=== PATIENT | male | born 1960 | race Caucasian/White ===

== ENCOUNTER 2017-07-06 09:59 | Day surgery (SDC) | payer OTHER ==
[~2017-07-06] VITALS: Ht 170.2 cm; Wt 81.5 kg
[2017-07-06] MEDS ORDERED: LOSARTAN (10:41)
[2017-07-06] MEDS ORDERED: OMEPRAZOLE (10:41)
[2017-07-06] MEDS ORDERED: FLOMAX (10:41)
[2017-07-06 10:42] VITALS: Ht 170.2 cm; Wt 81.5 kg
[2017-07-06 11:53] VITALS: BP 128/76; PULSE 63; RESP 14
--- NOTE | 2017-07-06 12:35 | OPPN ---
Date/Time of Note Date/Time of Note DATE: 07/06/17 TIME: 12:32 Operative Report Preoperative Diagnosis Screening colonoscopy Abdominal pain Postoperative Diagnosis Gastritis with erosions Internal hemorrhoids Operation/Procedure Performed Esophagogastroduodenoscopy and biopsy Colonoscopy Provider: JOANNE OROZCO MD Anesthesia Type: moderate sedation Estimated blood loss: none Transfusion Required: no Specimens Gastric mucosal biopsy Grafts/Implants: none Complications: no JOANNE OROZCO MD Jul 06, 2017 12:34
[2017-07-06 12:55] VITALS: BP 125/80; PULSE 50; RESP 14
[2017-07-06] MEDS ORDERED: FENTAnyl 50 MCG/ML VIAL ONE (12:57)
[2017-07-06] MEDS ORDERED: MIDAZOLAM 1 MG/ML 2 ML INJ ONE ×2 (12:57)
--- NOTE | 2017-07-06 13:28 | GILP ---
DATE OF PROCEDURE: 07/06/2017 PROCEDURE PERFORMED: 1. Esophagogastroduodenoscopy and biopsy. 2. Colonoscopy. SURGEON: Domingo Farmer MD. PREOPERATIVE DIAGNOSES: 1. Abdominal pain. 2. Screening colonoscopy. POSTOPERATIVE DIAGNOSES: 1. Gastritis with erosions. 2. Gastric mucosal biopsies were taken for Helicobacter pylori test. 3. Colonoscopy all the way to the cecum. 4. Internal hemorrhoids. 5. No colon neoplasm was identified. INDICATION: Mr. Cornell Noonan is a 56-year-old male patient who had upper abdominal pain not responding to therapy. He also noticed change in the bowel habits and he had positive occult blood in stool. He has never had a screening colonoscopy. The procedures and possible complications were well explained to the patient. He understood and consented to the procedure. DESCRIPTION OF PROCEDURE: Under influence of fentanyl and Versed, the gastroscope was carefully introduced into the esophagus, and under direct vision, it was advanced to the stomach, into the pylorus, into the duodenal bulb, and descending duodenum. FINDINGS: Esophagus: Mucosa was normal. Stomach: Patient had gastritis with erosions. Gastric mucosal biopsies were taken for H pylori test. Duodenum was normal. The colonoscope was carefully introduced in the rectum, and under direct vision, it was advanced all the way to the cecum. FINDINGS: The patient had internal hemorrhoids. No colon neoplasm was identified. He tolerated the procedures very well. There was no complication from the procedures. At the end of procedure, he was awake with stable vital signs. He was discharged home in the care of his family. IMPRESSION: Please see postop diagnoses. PLAN: 1. Omeprazole 40 mg p.o. in the morning. 2. Await H pylori test report. 3. Next screening colonoscopy in 10 years. Dictated By: MD NICOLA Lewis/sebastian/susan /Document#: [id number]
== END 2017-07-06 14:07 | disposition home or self-care (01) ==
LOC: GIL 09:59
PROVIDERS: ATTEND Internal Medicine Gastroenterology
DX: Z12.11 Encounter for screening for malignant neoplasm of colon (principal); K64.8 Other hemorrhoids
CPT/HCPCS: 43239; 45378; 87081; J2250; J3010